=== PATIENT | female | born 1985 | race Caucasian/White ===

== ENCOUNTER 2025-03-14 17:48 | Emergency (ER) | payer SELFPAY ==
--- NOTE | 2025-03-14 19:07 | PC.NURSE ---
vamshi attempt to call patient without answer at this time.
--- OUTSIDE RECORDS SUMMARY | 2025-03-14 19:29 | XMS_ITS | Encounter Summary ---
Author Organization [facility] Address [facility] [place] [address] Care Team Providers Care Mandrel Cleaner Name Role Phone Renee Emmanuel RADAR SYSTEMS ENGINEER Primary Care Provider [phone] Encounter Details Date Type Department Care Team (Latest Contact Info) Description 03/06/2025 Results [facility] [place] [address] [place] [address] Renee Emmanuel, RADAR SYSTEMS ENGINEER [address] [place] [address] CBC W/DIFF AUTOMATED, COMPREHENSIVE METABOLIC PANEL, VITAMIN B-12, FOLIC ACID SERUM Social History Tobacco Use Types Packs/Day Years Used Date Smoking Tobacco: Never Passive Smoke Exposure: Never Smokeless Tobacco: Never Alcohol Use Standard Drinks/Week Comments Not Currently 0 (1 standard drink = 0.6 oz pur e alcohol) PHQ-2 Answer Date Recorded Patient Health Questionnaire-2 Score 6 02/07/2025 Comments No Sex and Gender Information Value Date Recorded Sex Assigned at Female 02/07/2025 1:38 PM CDT Legal Sex Female 12:40 PM SIDE LASTER Gender Identity Female 02/07/2025 1:38 PM CDT Sexual Orientation Straight 02/07/2025 1: 38 PM CDT documented as of this encounter Plan of Treatment Upcoming Encounters Date Type Department Care Team (Late st Contact Info) Description 04/15/2025 1:00 PM CDT [facility] [place] [address] [place] [address] Renee Emmanuel, RADAR SYSTEMS ENGINEER [address] [facility] [address] [place] [address] documented as of this encounter Visit Diagnoses Not on filedocumented in this encounter Additional Health Concerns Assessment Noted Time PHQ-9 Depression Total Score: 24 025 1:39 PM CDT documented as of this encounter Care Teams Mandrel Cleaner Relationship Specialty Start Date End Date Renee Emmanuel NP [address] [facility] [address] [address] [place] [address] PCP - General NURSE PRACTITIONER 10/04/24 documented as of this encounter
--- OUTSIDE RECORDS SUMMARY | 2025-03-14 19:29 | XMS_ITS | Encounter Summary ---
Author Organization [facility] Address [facility] [place] [address] Care Team Providers Care Load Test Mechanic Name Role Phone Renee Emmanuel NP Primary Care Provider [phone] Encounter Details Date Type Department Care Team (Latest Contact Info) Description 03/14/2025 MyChart Message Enc [facility] [place] [address] [place] [address] Renee Emmanuel NP [address] [place], [place] [phone] Completely out of jacoby Social History Tobacco Use Types Packs/Day Years [...] PM CDT Legal Sex Female 12:40 PM GENERAL OPHTHALMOLOGIST Gender Identity Female 02/07/2025 1:38 PM CDT Sexual Orientation Straight 02/07/2025 1: 38 PM CDT documented as of this encounter Plan of Treatment Upcoming Encounters Date Type Department Care Team (Late st Contact Info) Description 04/15/2025 1:00 PM CDT [facility] [place] [address] [place], [place] [phone] Renee Emmanuel, EDUARDO [address] [place] [address] documented as of this encounter Visit Diagnoses Not on filedocumented in this encounter Additional Health Concerns Assessment Noted Time PHQ-9 Depression Total Score: 24 025 1:39 PM CDT documented as of this encounter Care Teams Load Test Mechanic Relationship Specialty Start Date End Date Renee Emmanuel, LABORER HOISTING [address] [facility] [address] [place] [address] PCP - General NURSE PRACTITIONER 10/04/24 documented as of this encounter
--- OUTSIDE RECORDS SUMMARY | 2025-03-14 19:29 | XMS_ITS | Encounter Summary ---
Author Organization [facility] Address [facility] [place] [address] Care Team Providers Care Post Framer Name Role Phone Renee Emmanuel BINDER CHAINSTITCH Primary Care Provider [phone] Encounter Details Date Type Department Care Team (Late st Contact Info) Description 03/14/2025 Misc Documentation [facility] Family Medicine - [address] [address] Renee Puente NP [address] [place] [address] Social History Tobacco Use Types Packs/Day Years [...] PM CDT Legal Sex Female 12:40 PM UNDERCOLLAR BASTER Gender Identity Female 02/07/2025 1:38 PM CDT Sexual Orientation Straight 02/07/2025 1: 38 PM CDT documented as of this encounter Plan of Treatment Upcoming Encounters Date Type Department Care Team (Late st Contact Info) Description 04/15/2025 1:00 PM CDT Office Visit [facility] [place] [address] [place], [place] [phone] Renee Emmanuel, BINDER CHAINSTITCH [address] [place], [place] [address] documented as of this encounter Visit Diagnoses Diagnosis Alcohol abuse- Primary Alcohol abuse, unspecified documented in this encounter Additional Health Concerns Assessment Noted Time PHQ-9 Depression Total Score: 24 025 1:39 PM CDT documented as of this encounter Care Teams Post Framer Relationship Specialty Start Date End Date Renee Emmanuel, BINDER CHAINSTITCH [address] [place] [address] PCP - General NURSE PRACTITIONER 10/04/24 documented as of this encounter
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
== END 2025-03-14 19:07 | disposition left against medical advice (07) ==
DX: Z76.0 Encounter for issue of repeat prescription (principal)
CPT/HCPCS: 99199

== ENCOUNTER 2025-07-10 03:47 | Emergency (ER) | payer BC, SELFPAY ==
[2025-07-10 03:50] VITALS: BP 133/61; PULSE 81; RESP 17; TEMP 36.4; O2SAT 97
[2025-07-10 04:05] LABS: Hematocrit 39.0 % (37.0-47.0); Hemoglobin 13.3 g/dL (12.0-15.0); Immature Granulocyte Percent A 0.2 % (0-0.5); Lymphocytes Absolute Auto 4.99 K/mm3 (0.9-3.2); Mean Corpuscular HGB Conc 34.1 g/dl (32-36); Mean Corpuscular Hemoglobin 32.0 pg (26-34); Mean Corpuscular Volume 94.0 fl (80-100); Nucleated Red Blood Cells Absolute Auto 0.000 K/mm3 (0.0-0.012); Nucleated Red Blood Cells Perc 0.0 % (0.0-0.2); Platelet Count Result 334 k/mm3 (150-375); Red Blood Count 4.15 M/mm3 (4.2-5.4); White Blood Count 10.1 K/mm3 (4.5-10.0)
[2025-07-10 04:05] LABS: BEDSIDEPREGUCG Negative (Negative)
[2025-07-10] MEDS: ONDANSETRON INJ 4 MG/2 ML VIAL IV PUSH (04:12)
[2025-07-10] MEDS: SODIUM CHLORIDE 0.9% IV 1,000 ML 999 ML IV CONT (04:12)
[2025-07-10 04:19] LABS: Acetaminophen < 10 ug/mL (10-30); Salicylate < 1.0 mg/dL (2-20)
[2025-07-10 04:25] LABS: Alanine Aminotransferase 16 U/L (6-35); Albumin Level 4.3 g/dL (3.5-5.1); Alkaline Phosphatase 46 U/L (38-126); Anion Gap 9 mmol/L (4-12); Aspartate Amino Transferase 23 U/L (14-36); Bilirubin,Total 0.3 mg/dL (0.2-1.3); Blood Urea Nitrogen 16 mg/dL (7-17); Calcium 8.7 mg/dL (8.4-10.2); Carbon Dioxide 20 mmol/L (22-30); Chloride 107 mmol/L (98-107); Estimated CRCL calculation 53 ml/min; Estimated Glomerular Filt Rate 59; Glucose 126 mg/dL (65-110); Lipase 121 U/L (23-300); Magnesium 1.8 mg/dL (1.6-2.3); Potassium 3.7 mmol/L (3.4-5.0); Sodium 136 mmol/L (137-145); Total Protein 7.1 g/dL (6.3-8.2)
--- NOTE | 2025-07-10 05:48 | ED_ITS ---
HPI - General Adult General Chief complaint: Nausea/Vomiting/Diarrhea Stated complaint: N/V, possible food poisoning Time Seen by Provider: 07/10/25 05:18 History of Present Illness HPI narrative: Patient is a 39-year-old female who presents emergency department this evening complaining of nausea and vomiting. Patient states that she bought some mushrooms online, katz teacher not the high but to micro does and feels as though the meter sick. She has had multiple episodes of nausea, vomiting and diarrhea. Otherwise denies any additional symptoms or concerns. Related Data Allergies Allergy/AdvReac Type Severity Reaction Status Date / Time No Known Allergies Allergy Verified 07/10/25 03:53 Review of Systems 2 Review of Systems: All systems are reviewed and are negative unless stated otherwise in the HPI. Exam 2 Narrative: General: Alert, awake, afebrile, in no acute distress. HEENT: PERRL, no rhinorrhea, no post nasal drip, oropharynx clear. Neck: Trachea midline, no JVD, no lymphadenopathy. Cardiovascular: Regular rate and rhythm, no murmurs, rubs or gallops, no peripheral edema. Respiratory: Clear to auscultation bilaterally, no tachypnea, no wheezing, no rhonchi, no rubs, no respiratory distress. Abdomen: Soft, nontender, nondistended, no rebound, no guarding, no peritoneal signs. Musculoskeletal: No joint swelling or deformity, normal muscle tone. Skin: No rashes or petechia, no signs of infection. Psychiatric: Alert and oriented, normal behavior and judgment for situation. Neurological: Alert and oriented to person, place, and time. Follows all commands. No focal deficits, speech is clear and fluent. Course Vital Signs Vital signs: Vital Signs Temperature 97.6 F 07/10/25 03:50 Pulse Rate 81 07/10/25 03:50 Respiratory Rate 17 07/10/25 03:50 Blood Pressure 133/61 07/10/25 03:50 Pulse Oximetry 97 07/10/25 03:50 Oxygen Delivery Room Air 07/10/25 03:50 Temperature 97.6 F 07/10/25 03:50 Pulse Rate 81 07/10/25 03:50 Respiratory Rate 17 07/10/25 03:50 Blood Pressure 133/61 07/10/25 03:50 Pulse Oximetry 97 07/10/25 03:50 Oxygen Delivery Room Air 07/10/25 03:50 Medical Decision Making MDM Narrative Medical decision making narrative: The patient was evaluated by myself in the emergency department. History is obtained from patient who is an independent historian and physical exam was performed. External medical records were reviewed at this time. IV was established and pertinent tests were ordered. Patient was administered 1 L IV fluid bolus with normal saline and 4 mg IV Zofran. Laboratory results obtained revealing no acute process. Differential diagnosis considerations include dehydration, electrolyte derangements, gastroenteritis, substance abuse. Comorbidities impacting this visit include none. I have evaluated and discussed social determinants of health with the patient that could potentially impact subsequent diagnosis and treatment plans. On repeat assessment of the patient, reevaluation revealed that the patient is doing well and is in no acute distress. Patient symptoms have improved since she arrived to our emergency department. Repeat vital signs were all reviewed and noted to be stable. Differential diagnosis and treatment plan were discussed with the patient at bedside. Patient agrees with discussion and after shared medical decision making agrees with discharge. All questions were answered to the patient's satisfaction. Patient will follow up with her PCP in 3-5 days. Script for Zofran was sent to patient's pharmacy to use as needed for nausea/vomiting. Patient was provided with strict return precautions and instructed to return to the emergency department if any new or worsening symptoms develop. The patient was discharged in stable condition. Vital Signs Vital Signs: Vital Signs Temperature 97.6 F 07/10/25 03:50 Pulse Rate 81 07/10/25 03:50 Respiratory Rate 17 07/10/25 03:50 Blood Pressure 133/61 07/10/25 03:50 Pulse Oximetry 97 07/10/25 03:50 Oxygen Delivery Room Air 07/10/25 03:50 Temperature 97.6 F 07/10/25 03:50 Pulse Rate 81 07/10/25 03:50 Respiratory Rate 17 07/10/25 03:50 Blood Pressure 133/61 07/10/25 03:50 Pulse Oximetry 97 07/10/25 03:50 Oxygen Delivery Room Air 07/10/25 03:50 Lab Data 07/10/25 03:57 07/10/25 03:57 Labs: Lab Results 07/10/25 07/10/25 Range/Units 03:57 04:03 WBC 10.1 H (4.5-10.0) K/mm3 RBC 4.15 L (4.2-5.4) M/mm3 Hgb 13.3 (12.0-15.0) g/dL Hct 39.0 (37.0-47.0) % MCV 94.0 (80-100) fl MCH 32.0 (26-34) pg MCHC 34.1 (32-36) g/dl RDW 13.2 (11.5-14.5) % Plt Count 334 (150-375) k/mm3 MPV 8.4 (7.4-10.4) fl Immature Gran % (Auto) 0.2 (0-0.5) % Neut % (Auto) 35.9 L (45.5-73.1) % Lymph % (Auto) 49.3 H (18.3-44.2) % [place] % (Auto) 6.0 (2.6-8.5) % Eos % (Auto) 7.8 H (0-4.4) % Baso % (Auto) 0.8 (0.2-1.2) % Lymph # (Auto) 4.99 H (0.9-3.2) K/mm3 [place] # (Auto) 0.6 (0.1-0.6) K/mm3 Eos # (Auto) 0.8 H (0-0.3) K/mm3 Baso # (Auto) 0.1 (0.0-0.1) K/mm3 Abs Immat Gran (auto) 0.02 (0.00-0.031) K/mm3 Absolute Neuts (auto) 3.6 (1.3-6.7) K/mm3 Absolute Nucleated RBC 0.000 (0.0-0.012) K/mm3 Nucleated RBC % 0.0 (0.0-0.2) % Sodium 136 L (137-145) mmol/L Potassium 3.7 (3.4-5.0) mmol/L Chloride 107 (98-107) mmol/L Carbon Dioxide 20 L (22-30) mmol/L Anion Gap 9 (4-12) mmol/L BUN 16 (7-17) mg/dL Creatinine 1.04 H (0.7-1.0) mg/dL Estim Creat Clear Calc 53 ml/min Estimated GFR 59 (59 - ) Glucose 126 H (65-110) mg/dL Calcium 8.7 (8.4-10.2) mg/dL Magnesium 1.8 (1.6-2.3) mg/dL Total Bilirubin 0.3 (0.2-1.3) mg/dL AST 23 (14-36) U/L ALT 16 (6-35) U/L Alkaline Phosphatase 46 (38-126) U/L Total Protein 7.1 (6.3-8.2) g/dL Albumin 4.3 (3.5-5.1) g/dL Lipase 121 (23-300) U/L Urine Color Yellow (Yellow) Urine Appearance Clear (Clear) Urine pH 6.0 (5.0-9.0) Ur Specific [place] 1.025 (1.001-1.035) Urine Protein 2+ H (Negative) mg/dL Urine Glucose (UA) Negative (Negative) mg/dL Urine Ketones Trace H (Negative) mg/dL Ur Blood (Man) 1+ H (Negative) Urine Nitrate Negative (Negative) Urine Bilirubin Negative (Negative) Urine Urobilinogen 1.0 (<2.0) mg/dL Add Ur Microanalysis Reviewed Leukocyte Esterase Rfl Negative (Negative) YUSUF/UL Urine RBC 21-50 H (0-2) /hpf Urine WBC 0-5 (0-3) /hpf Ur Squamous Epith Cells Many H (Few) /hpf Calcium Oxalate Crystal Present (None) /hpf Urine Bacteria 2+ H /hpf Urine Casts 0-2 POC Urine HCG, Qual Negative (Negative) Salicylates < 1.0 L (2-20) mg/dL Acetaminophen < 10 L (10-30) ug/mL Ethyl Alcohol < 10 (<10) mg/dL Discharge Plan Discharge Clinical Impression: Nausea & vomiting, Acute diarrhea, Substance abuse Patient Disposition: Home Condition: Improved Instructions: Antibiotic Form, Food Poisoning (ED) Additional Instructions: Please follow-up with your family doctor within the next 3-5 days. Return to emergency department for new or worsening symptoms develop. Use the prescribed Zofran as needed for nausea/vomiting. Patient Language: Lebanese Prescriptions: New ondansetron 4 mg tablet,disintegrating 4 mg PO Q8H PRN (Reason: nausea and vomiting) Qty: 10 0RF Follow-up/Referrals: PHYSICIAN,RUBBER TUBING SPLICER [Primary Care Provider, Internal Medicine] Devorah House DO [Physician, Family Practice] - 3 Days Time of Disposition: 05:53
[2025-07-10 06:03] LABS: Add Urine Microscopic? YES; Appearance Urine Clear (Clear); Glucose Urine UA Negative (Negative); Leukocyte Esterase Ur Negative LEU/UL (Negative); Need Manual Microscopic Reviewed; Nitrate Urine Negative (Negative); Non Pathogenic Casts 0-2; Specific Grav Ur 1.025 (1.001-1.035)
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
[2025-07-10 06:30] VITALS: BP 102/67; PULSE 68; RESP 18; O2SAT 99
== END 2025-07-10 06:31 | disposition home or self-care (01) ==
LOC: ANHED 06:07
PROVIDERS: Emergency Provider Emergency Medicine
DX: R11.2 Nausea with vomiting, unspecified (principal); R19.7 Diarrhea, unspecified; F19.10 Other psychoactive substance abuse, uncomplicated
CPT/HCPCS: 36415; 80053; 80143; 80179; 81001; 81025; 82077; 83690; 83735; 85025; 96361; 96374; 99284; J2405; J7030

== ENCOUNTER 2025-08-03 14:11 | Emergency (ER) | payer BC, SELFPAY ==
--- NOTE | ~2025-08-03 | XR_ITS ---
EXAMINATION: XR chest 1V portable 08/03/2025 15:24 INDICATION: AMS TECHNIQUE:2 AP portable supine images of the chest were obtained. COMPARISON: None available FINDINGS: Heart is not enlarged. No pneumothorax. No pleural effusion. No free air under the diaphragm. Small interstitial opacities in both lungs. There is a 2.1 x 1.7 cm heart-shaped metallic density projecting over the lower cervical spine. Correlate clinically. IMPRESSION: 1. Interstitial opacities in both lungs. Differential includes interstitial edema, interstitial pneumonia or chronic interstitial changes. 2.There is a 2.1 x 1.7 cm heart-shaped metallic density projecting over the lower cervical spine. Correlate clinically. If symptoms persist or worsen, consider a short-term follow-up study or additional imaging for further assessment. Reviewed, dictated and finalized at location Q. IMPRESSION: 1. Interstitial opacities in both lungs. Differential includes interstitial selena ma, interstitial pneumonia or chronic interstitial changes. 2.There is a 2.1 x 1.7 cm heart-shaped metallic density projecting over the low er cervical spine. Correlate clinically. If symptoms persist or worsen, consider a short-term follow-up study or additio nal imaging for further assessment.
--- NOTE | ~2025-08-03 | CT_ITS ---
EXAMINATION: CT thoracic lumbar wo con DATE: 08/03/2025 14:49 INDICATION: Trauma. Right-sided paralysis. TECHNIQUE: Computed tomography (CT) of the thoracic and lumbar spine was performed without intravenous contrast. Automated exposure control and iterative reconstruction technique were employed. The dose-length product was 1104.27 mGy-cm. COMPARISON: None FINDINGS: Thoracic spine: Alignment is normal. Vertebral body heights are normal. There is multilevel mild disc height loss at T3-T4 through T6-T7 and at T10-T11. No fracture. No central canal stenosis. There is multilevel mild bilateral facet osteoarthritis throughout the thoracic spine. Mild neural foraminal stenosis on the left at T7- T8 and mild on the left and minimal on the right at T10-T11. Paravertebral soft tissues and visualized mediastinum are unremarkable. Visualized portions of the lungs are clear. Lumbar spine: Alignment is normal. Vertebral body heights are normal. No fracture. Mild disc height loss and diffuse disc bulges contributing to mild central canal stenosis at L4-L5 and L5-S1. There is multilevel bilateral lumbar facet osteoarthritis, moderate bilaterally at L5-S1, mild to moderate bilaterally at T12-L1, L1-L2 and L2-L3 and L3-L4 and L4-L5. There is mild neural from stenosis bilaterally at L4- L5 and L5-S1. Paravertebral soft tissues are unremarkable. Mild osteoarthritis at the lateral sacroiliac joints. IMPRESSION: 1. Mild thoracic and lumbar spondylosis. No acute osseous abnormality. Reviewed, dictated and finalized at location A.
--- NOTE | ~2025-08-03 | CT_ITS ---
EXAMINATION: CT brain wo con COMPARISON: None HISTORY: right sided paralysis TECHNIQUE: Axial images were obtained through the brain without IV contrast. CT scan performed using dose optimization techniques including the following automated exposure control; adjustment of mA and/or kV; use of iterative reconstruction technique. Automatic exposure control was used to reduce radiation dose. Permanent radiation dose record is archived to PACS. FINDINGS: No acute infarct or parenchymal hemorrhage. No abnormal mass or mass effect. No midline shift. No extra-axial fluid collections. No hydrocephalus. . Mastoid air cells unremarkable. Sinuses and orbits unremarkable. No acute fracture. No significant facial or scalp soft tissue swelling evident. No radiopaque foreign body is seen. Impression: 1.No acute intracranial abnormality. Reviewed, dictated and finalized at location P. Impression: 1.No acute intracranial abnormality.
--- NOTE | ~2025-08-03 | CT_ITS ---
EXAMINATION: CT cervical spine wo con COMPARISON: None HISTORY: right sided paralysis TECHNIQUE: Axial images were obtained through the spine without IV contrast. Coronal, sagittal reconstruction images were obtained from the axial views. CT scan performed using dose optimization techniques including the following automated exposure control; adjustment of mA and/or kV; use of iterative reconstruction technique. Automatic exposure control was used to reduce radiation dose. Permanent radiation dose record is archived to PACS. FINDINGS: The vertebral heights are intact. No fracture or subluxation. The disc heights are intact. Soft tissues unremarkable. Impression: No acute abnormality. Reviewed, dictated and finalized at location P. Impression: No acute abnormality.
--- NOTE | 2025-08-03 14:16 | ECG_ITS ---
Test Date: 2025-08-03 14:20:26 Measurements Intervals [place] Rate: 65 P: 114 MA: 161 QRS: 94 QRSD: 88 T: 111 QT: 424 QTc: 441 Interpretive Statements SINUS RHYTHM WITH SINUS ARRHYTHMIA RIGHT AXIS DEVIATION POSSIBLE LEFT ATRIAL ENLARGEMENT INCOMPLETE RIGHT BUNDLE BRANCH BLOCK BORDERLINE ST-T WAVE ABNORMALITY- INFERIOR LEADS BASELINE ARTIFACT- I, II, III, AVR, AVL, AVF, V1-V6 BORDERLINE ECG No previous ECG available for comparison Electronically Signed On 08-03-2025 14:40:07 CDT by Roberto Trevizo D.O.
[2025-08-03 14:22] VITALS: BP 107/81; PULSE 56; RESP 18; TEMP 36.4; O2SAT 100
--- NOTE | 2025-08-03 14:30 | ED.GENADULT ---
HPI - General Adult General Chief complaint: Syncope Stated complaint: Syncopal Time Seen by Provider: 08/03/25 14:15 History of Present Illness HPI narrative: Patient is a 39-year-old female who presents ER after being found down in her shower. They attempted Narcan with no response but after physical stimuli she woke up and reported that she has been drinking heavily today. Patient is upset/belidgerent and cannot provide additional details of what happened in the shower. Reports she took propanolol and a gabapentin but could not tell us the dose. She was supposed to go to a [facility] today. Outside med search reveals she takes abilify 5mg and gabapentin 300mg. Related Data Allergies Allergy/AdvReac Type Severity Reaction Status Date / Time No Known Allergies Allergy Verified 07/10/25 03:53 Review of Systems Review of Systems: All systems reviewed & are unremarkable except as noted in HPI and below Constitutional: Constitutional: Reports no additional constitutional complaints ENT: Reports system reviewed and no additional complaints, except as documented Cardiovascular: Cardiovascular: Reports no additional cardiovascular complaints Respiratory: Respiratory: Reports no additional respiratory complaints Musculoskeletal: Musculoskeletal: Reports no additional musculoskeletal complaints Neurologic: Reports system reviewed and no additional complaints, except as documented PMFSH Past Medical History Medical History (Updated 08/03/25 @ 15:34 by Brian Walters MD) History of seizure disorder Surgical History Surgical History (Updated 08/03/25 @ 15:34 by Brian Walters MD) No pertinent past surgical history Exam Narrative: GENERAL: Intoxicated-appearing, well-nourished, initially not responding but then woke up with sternal rub. HEAD: Normocephalic, atraumatic. EYES: PERRL and EOMI. ENT: Mucous membranes moist. Nasal trumpet right nare. NECK: Supple. C-spine immobilized CHEST: Clear to auscultation. No respiratory distress. HEART: Regular rate and rhythm. Normal peripheral pulses. ABDOMEN: Soft, nontender, nondistended. EXTREMITIES: Normal range of motion. No edema. SKIN: Warm, dry, no rash. NEURO: Alert and oriented x3. Cranial nerves symmetric with no expressive aphasia or dysarthria. Initially patient was having full range of motion normal sensation all extremities however 10 minutes after initial exam she reported numbness and paralysis to right side which was confirmed on exam. This includes the upper and lower extremity as well as the torso anterior and posteriorly. Mild sharp touch sensation in the plantar aspect of the right foot. Course Course Emergency Course: 1430: Patient initially apneic not responding upon my presentation to the room. I then performed a sternal rub patient was able to grab my arm with both hands and tell me to stop. She then had a brief episode where she was not responsive and then woke up again and have full conversation was orient x4. Reports she has history of a seizure disorder but is unmedicated. She takes propanolol on gabapentin and took some of that today along with alcohol as she drink. I then returned to the room and patient reports she cannot feel or move her right side. She has flaccid paralysis of her right arm and leg. She has absence of sharp touch to the right have her body including the anterior and posterior aspects of the arm/leg/chest/abdomen. Left side normal. She is being taken immediately to the CT scanner. Her neck has been immobilized since being picked up by EMS. Earlier patient could feel less perform an Accu-Chek on the right side as well as an IV on the right side. Patient due to her intoxication started rolling and feeling in the bed prior to the changes in her neurologic status. No observable seizure activity. 1451: I accompanied patient to CT where she is still not moving the right side. She reports that she has had a seizure in the past that gave her right sided paralysis but this was only after being asked the specific question. I'm unsure whether this is accurate given her level of intoxication and anxiety. Her spouse's phone number works but the mailbox is full. Apparently the patients mother left and reported she would be back in an hour and didn't leave a number. 1525: On the line with [facility], unable to speak with Stroke attending. [facility] attending. 1531: Accepted by Dr. Munoz in the ER. Also spoke with Dr. Jean Baptiste with the stroke team, TNK not appropriate at this time. Patient will be transferred by air-medical transport. Vital Signs Vital signs: Vital Signs Temperature 97.6 F 08/03/25 14:22 Pulse Rate 56 L 08/03/25 14:22 Respiratory Rate 18 08/03/25 14:22 Blood Pressure 107/81 08/03/25 14:22 Pulse Oximetry 100 08/03/25 14:22 Oxygen Delivery Room Air 08/03/25 14:22 Temperature 97.7 F 08/03/25 15:01 Pulse Rate 59 L 08/03/25 15:01 Respiratory Rate 12 08/03/25 15:01 Blood Pressure 114/84 08/03/25 15:01 Pulse Oximetry 100 08/03/25 15:01 Oxygen Delivery Room Air 08/03/25 14:22 Medical Decision Making Vital Signs Vital Signs: Vital Signs Temperature 97.6 F 08/03/25 14:22 Pulse Rate 56 L 08/03/25 14:22 Respiratory Rate 18 08/03/25 14:22 Blood Pressure 107/81 08/03/25 14:22 Pulse Oximetry 100 08/03/25 14:22 Oxygen Delivery Room Air 08/03/25 14:22 Temperature 97.7 F 08/03/25 15:01 Pulse Rate 59 L 08/03/25 15:01 Respiratory Rate 12 08/03/25 15:01 Blood Pressure 114/84 08/03/25 15:01 Pulse Oximetry 100 08/03/25 15:01 Oxygen Delivery Room Air 08/03/25 14:22 Lab Data 08/03/25 14:23 08/03/25 14:23 Labs: Lab Results 08/03/25 Range/Units 14:23 WBC 6.9 (4.5-10.0) K/mm3 RBC 4.56 (4.2-5.4) M/mm3 Hgb 14.3 (12.0-15.0) g/dL Hct 42.0 (37.0-47.0) % MCV 92.1 (80-100) fl MCH 31.4 (26-34) pg MCHC 34.0 (32-36) g/dl RDW 13.3 (11.5-14.5) % Plt Count 331 (150-375) k/mm3 MPV 8.5 (7.4-10.4) fl Immature Gran % (Auto) 0.1 (0-0.5) % Neut % (Auto) 36.1 L (45.5-73.1) % Lymph % (Auto) 53.3 H (18.3-44.2) % Bates % (Auto) 4.5 (2.6-8.5) % Eos % (Auto) 4.8 H (0-4.4) % Baso % (Auto) 1.2 (0.2-1.2) % Lymph # (Auto) 3.66 H (0.9-3.2) K/mm3 Bates # (Auto) 0.3 (0.1-0.6) K/mm3 Eos # (Auto) 0.3 (0-0.3) K/mm3 Baso # (Auto) 0.1 (0.0-0.1) K/mm3 Abs Immat Gran (auto) 0.01 (0.00-0.031) K/mm3 Absolute Neuts (auto) 2.5 (1.3-6.7) K/mm3 Absolute Nucleated RBC 0.000 (0.0-0.012) K/mm3 Nucleated RBC % 0.0 (0.0-0.2) % PT Pending INR Pending APTT Pending Sodium 141 (137-145) mmol/L Potassium 4.0 (3.4-5.0) mmol/L Chloride 109 H (98-107) mmol/L Carbon Dioxide 21 L (22-30) mmol/L Anion Gap 11 (4-12) mmol/L BUN 10 D (7-17) mg/dL Creatinine 0.70 (0.7-1.0) mg/dL Estim Creat Clear Calc Not Reportable Estimated GFR > 60 (59 - ) Glucose 93 (65-110) mg/dL Lactic Acid 2.0 (0.7-2.0) mmol/L Calcium 9.1 (8.4-10.2) mg/dL Magnesium 2.2 (1.6-2.3) mg/dL Total Bilirubin 0.7 (0.2-1.3) mg/dL AST 26 (14-36) U/L ALT 17 (6-35) U/L Alkaline Phosphatase 53 (38-126) U/L Total Protein 8.1 (6.3-8.2) g/dL Albumin 4.9 (3.5-5.1) g/dL TSH (Reflex) Pending Salicylates < 1.0 L (2-20) mg/dL Acetaminophen < 10 L (10-30) ug/mL Ethyl Alcohol 181 (<10) mg/dL Imaging Data Radiologist's impression: ITS Impressions Head CT 08/03/25 14:46 Impression: 1.No acute intracranial abnormality. Cervical Spine CT 08/03/25 14:50 Impression: No acute abnormality. Thoracic/Lumbar Spine CT 08/03/25 15:25 IMPRESSION: 1. Mild thoracic and lumbar spondylosis. No acute osseous abnormality. ECG Data EKG #1: ECG completion date: 08/03/25 ECG completion time: 14:20 EKG Interpretation: normal rate (65), sinus rhythm, no ST changes, normal QRS and right axis Critical Care Time Critical Care Time Critical Care Time: Yes Total Critical Care Time: 84 Discharge Plan Discharge Clinical Impression: Hemiparesis of right dominant side, Alcohol intoxication Patient Disposition: Acute Care Hospital Condition: Serious Patient Language: Nigerian Prescriptions: No Action ondansetron 4 mg tablet,disintegrating 4 mg PO Q8H PRN (Reason: nausea and vomiting) Qty: 10 0RF Follow-up/Referrals: PHYSICIAN,COMMUNICATION STUDIES PROFESSOR [Primary Care Provider, Internal Medicine] Quality Stroke Scale Stroke Scale 1: Stroke scale date:: 08/03/25 Stroke scale time:: 14:30 1a Level of consciousness: alert-0 1b Level of consciousness questions: answers both correctly-0 1c Level of consciousness commands: obeys both correctly-0 2 Best gaze: normal-0 3 Visual: no visual loss-0 4 Facial palsy: normal-0 5a Motor: left arm: no drift-0 5b Motor: right arm: no movement-4 6a Motor: left leg: no drift-0 6b Motor: right leg: no movement-4 7 Limb ataxia: present in two limbs-2 8 Sensory: sev total sensory loss-2 9 Best language: no aphasia-0 10 Dysarthria: normal-0 11 Extinction and inattention: no abnormality-0 Level:: 12
--- NOTE | 2025-08-03 14:33 | PCRCNOTE ---
ABG'S delayed pt gone to [facility] for testing
[2025-08-03 14:37] LABS: Hematocrit 42.0 % (37.0-47.0); Hemoglobin 14.3 g/dL (12.0-15.0); Immature Granulocyte Percent A 0.1 % (0-0.5); Lymphocytes Absolute Auto 3.66 K/mm3 (0.9-3.2); Mean Corpuscular HGB Conc 34.0 g/dl (32-36); Mean Corpuscular Hemoglobin 31.4 pg (26-34); Mean Corpuscular Volume 92.1 fl (80-100); Nucleated Red Blood Cells Absolute Auto 0.000 K/mm3 (0.0-0.012); Nucleated Red Blood Cells Perc 0.0 % (0.0-0.2); Platelet Count Result 331 k/mm3 (150-375); Red Blood Count 4.56 M/mm3 (4.2-5.4); White Blood Count 6.9 K/mm3 (4.5-10.0)
[2025-08-03 14:56] LABS: Alanine Aminotransferase 17 U/L (6-35); Albumin Level 4.9 g/dL (3.5-5.1); Alkaline Phosphatase 53 U/L (38-126); Anion Gap 11 mmol/L (4-12); Aspartate Amino Transferase 26 U/L (14-36); Bilirubin,Total 0.7 mg/dL (0.2-1.3); Blood Urea Nitrogen 10 mg/dL (7-17); Calcium 9.1 mg/dL (8.4-10.2); Carbon Dioxide 21 mmol/L (22-30); Chloride 109 mmol/L (98-107); Estimated Glomerular Filt Rate > 60; Glucose 93 mg/dL (65-110); Magnesium 2.2 mg/dL (1.6-2.3); Potassium 4.0 mmol/L (3.4-5.0); Sodium 141 mmol/L (137-145); Total Protein 8.1 g/dL (6.3-8.2)
[2025-08-03 15:01] VITALS: BP 114/84; PULSE 59; RESP 12; TEMP 36.5; O2SAT 100
[2025-08-03 15:09] LABS: Acetaminophen < 10 ug/mL (10-30); Salicylate < 1.0 mg/dL (2-20)
[2025-08-03] MEDS: SODIUM CHLORIDE 0.9% IV 1,000 ML 999 ML IV CONT (15:17)
[2025-08-03 15:26] LABS: Thyroid Stimulating Hormone Reflex 2.540 uIU/mL (0.465-4.68)
[2025-08-03 15:28] LABS: Alveolar/Arterial O2 Gradient 47.4 mmHg; Fractional Inspired Oxygen 28 %; HCO3 ABG 20.9 mEq/l (22.0-26.0); Oxygen Content ABG 19.5 %vol (16.0-22.0); Oxygen Saturation ABG 97.9 % (95.0-100.0); PCO2 ABG 36.5 mmHg (35.0-45.0); PO2 ABG 109.2 mmHg (80.0-100.0); PO2 FiO2 Ratio Arterial Blood 3.90 %
[2025-08-03 15:29] LABS: Liters per Minute 2.0 LPM; Site Drawn RIGHT BRACHIAL
[2025-08-03 15:36] LABS: BEDSIDEPREGUCG Negative (Negative)
[2025-08-03 15:42] LABS: Add Urine Microscopic? YES; Appearance Urine Clear (Clear); Glucose Urine UA Negative (Negative); Leukocyte Esterase Ur Negative LEU/UL (Negative); Nitrate Urine Negative (Negative); Non Pathogenic Casts 0-2; Specific Grav Ur 1.005 (1.001-1.035)
[2025-08-03] MEDS: levETIRAcetam 1000MG/NACL100ML 1,000 MG/100 ML BAG 400 MG IVPB (15:46)
[2025-08-03 15:50] LABS: INR 0.9; Prothrombin Time 12.5 Seconds (11.1-14.7)
[2025-08-03 15:51] LABS: Partial Thromboplastin Time 30.0 Seconds (22.3-36.8)
[2025-08-03] MEDS: diazePAM INJ (*CRX) 10 MG/2 ML SYRINGE 5 MG IV PUSH (15:52)
[2025-08-03 16:27] LABS: Cannabinoid Screen Urine Positive (Negative)
== END 2025-08-03 15:38 | disposition short-term general hospital (02) ==
PROVIDERS: Emergency Provider Emergency Medicine
DX: G81.01 Flaccid hemiplegia affecting right dominant side (principal); F10.129 Alcohol abuse with intoxication, unspecified; Y90.6 Blood alcohol level of 120-199 mg/100 ml; G40.909 Epilepsy, unspecified, not intractable, without status epilepticus; M47.816 Spondylosis without myelopathy or radiculopathy, lumbar region; M47.814 Spondylosis without myelopathy or radiculopathy, thoracic region; I45.10 Unspecified right bundle-branch block; R94.31 Abnormal electrocardiogram [ECG] [EKG]; R91.8 Other nonspecific abnormal finding of lung field
CPT/HCPCS: 36415; 36600; 70450; 71045; 72125; 72128; 72131; 80053; 80143; 80179; 80307; 81001; 81025; 82077; 82805; 83605; 83735; 84443; 85018; 85025; 85610; 85730; 93005; 96374; 96375; 99285; J1953; J3360; J7030